=== PATIENT | female | born 1955 | race African-American/Black ===

== ENCOUNTER → 2017-01-25 | Outpatient (CLI) | payer OTHER ==
[~2017-01-25] MED LIST: ATIVAN PO; BACLOFEN10 MG PO; BACTRIM DS TABL1 TA1 PO; FLEXERIL10 MG PO; HYDROCODON-ACE1 EAC5 PO; HYDROCODON-ACE1 EAC7 PO; IBUPROFEN800 MG PO; KEFLEX500 MG PO; LISINOPRIL-HCTZ1 T15 PO; LORTAB 5/500 TA1 TA1 PO; NAPROXEN375 MG PO; NEURONTIN100 MG PO; NORVASC PO; WELLBUTRIN XL150 M1 PO
--- NOTE | ~2017-01-25 | MR17 ---
[facility] A Service of [facility] & [facility] RADIOLOGY TEXT RESULTS PATIENT: OSWALD DE LUNA LOCATION: [facility] : 53 UNIT #: [id number] AGE: [address]: Glenn Knapp MD SEX: F ORDER DR: [id number] [facility] [address] [place], [place] [address] [id number] O MR#: [id number] Acc #: [id number] NAME: OSWALD DE LUNA : 1955 SEX: F STUDY DATE/TIME: 01/25/2017 7:11 UNIT: [facility] ROOM: STUDY DESCRIPTION: MR Brain WWo Contrast Attending Physician: Glenn Knapp M.D. Referring Physician: Glenn Knapp M.D. Ordering Physician: Glenn Knapp M.D. Primary Care Physician: Gold Mckenna M.D. MRI CENTER REPORT This report is preliminary unless electronic signature is present. EXAM MRI of the brain with and without contrast. DATE OF EXAM 01/25/2017 COMPARISON MRI of the brain with and without contrast dated 09/28/2016. HISTORY Lung cancer diagnosed September 19, 2016. Follow up previous MRI brain. TECHNIQUE Multisequence, multiplanar imaging of the brain was obtained with and without contrast. GFR measured greater than 60. 16 mL of MultiHance was administered intravenously. FINDINGS When compared to the previous study from last year, there is improvement in the enhancing mass in the junction of the left temporal and occipital lobes measuring 9 x 10 mm. Subtle nonenhancing increased T2 signal in this region has also decreased in size. No acute stroke, midline shift or hydrocephalus. There are scattered multiple less than 1 cm hyperintense T2 signal lesions noted in the subcortical white matter, periventricular white matter, antony and left cerebellar hemisphere. Some of these lesions are confluent in biparietal periventricular region. Subtle increased T2 signal in the region of bilateral thalami, particularly in the left cannot be excluded. Post contrast sequences do not demonstrate any enhancing mass with edematous change. Thick slices through the sella with the pituitary gland demonstrates a partially empty sella. Pineal region is unremarkable. Mild degenerative changes are in the cervical spine. [facility] A Service of [facility] & [facility] RADIOLOGY TEXT RESULTS PATIENT: OSWALD DE LUNA LOCATION: [facility] : 53 UNIT #: [id number] AGE: [address]: Glenn Knapp MD SEX: F ORDER DR: IMPRESSION 1. There is an enhancing 1 cm lesion noted in the junction of the left posterior temporal lobe and the adjacent left occipital lobe which in a setting of malignancy is most suggestive of metastases. That lesion has significantly improved in the current study. Subtle nonenhancing increased T2 signal in this region has also decreased in size. It is suggestive of improving metastasis. No interval new enhancing lesions are identified. 2. Nonenhancing multiple hyperintense T2 signal lesions are noted in the brain, predominately involving the white matter, likely related to mild chronic microvascular ischemic change or migraine based on age and statistics. Dictated by... Peng Vargas M.D. THIS IS AN ELECTRONICALLY VERIFIED REPORT Peng Vargas M.D. at 01/27/2017 1:14 PM CPR/cam TD: 01/25/2017 20:37 JOB #: [id number] MRI CENTER REPORT COPY
[2017-01-25 07:06] LABS: POC - CREATININE 0.69 mg/dL (0.44-1.03); POC - GFR >60.0 mL/min (>60)
== END | disposition home or self-care (01) ==
LOC: CMRI 06:30
PROVIDERS: Internal Medicine Hematology & Oncology
DX: C34.12 Malignant neoplasm of upper lobe, left bronchus or lung (principal); C79.31 Secondary malignant neoplasm of brain; C79.51 Secondary malignant neoplasm of bone; L40.0 Psoriasis vulgaris
CPT/HCPCS: 70553; 82565; A9577

== ENCOUNTER → 2017-02-02 | Outpatient (CLI) | payer OTHER ==
--- NOTE | ~2017-02-02 | MR17 ---
[facility] A Service of [facility] & [facility] RADIOLOGY TEXT RESULTS PATIENT: OSWALD DE LUNA LOCATION: [facility] : 53 UNIT #: [id number] AGE: [address]: Adams Gannon MD SEX: F ORDER DR: [id number] [facility] [address] [place], [place] [address] [id number] O MR#: [id number] Acc #: [id number] NAME: OSWALD DE LUNA : 1955 SEX: F STUDY DATE/TIME: 02/02/2017 7:06 UNIT: [facility] ROOM: STUDY DESCRIPTION: MR Brain WWo Contrast Attending Physician: Adams Gannon M.D. Referring Physician: Adams Gannon M.D. Ordering Physician: Adams Gannon M.D. Primary Care Physician: Gold Mckenna M.D. MRI CENTER REPORT This report is preliminary unless electronic signature is present. EXAM MRI of the brain with and without contrast dated 02/02/2017. COMPARISON MRI brain with and without contrast dated 01/25/2017. HISTORY Lung cancer diagnosed in September 19, 2016. Metastatic workup. TECHNIQUE Multisequence multiplanar imaging of the brain was obtained with and without contrast. GFR measured greater than 60. 16 mL of MultiHance was administered intravenously. FINDINGS Previously noted lesion along the inferior and posterior aspect of the left lateral temporal lobe close to the left occipital lobe does not demonstrate any enhancement and it measures about 4 mm. Stable when compared to the previous study from a week ago. Previously noted multiple hyperintense T2 nonenhancing lesions in the periventricular white matter, subcortical white matter and antony are relatively stable. No acute stroke, hydrocephalus, hemorrhage or midline shift. There is no new enhancing intracranial mass. Empty sella is again seen. Visualized pineal region is unremarkable. Mild degenerative changes are in the cervical spine. IMPRESSION 1. No significant interval change. 2. Previously noted small 4 mm restricted diffusion lesion of the posterior and lateral left temporal lobe close to the left occipital lobe is stable. The metastatic focus had improved when compared to the previous study. 3. No interval new mass, hydrocephalus or midline shift. 4. Empty sella. Benign. STS. [facility] A Service of [facility] & [facility] RADIOLOGY TEXT RESULTS PATIENT: OSWALD DE LUNA LOCATION: [facility] : 53 UNIT #: [id number] AGE: [address]: Adams Gannon MD SEX: F ORDER DR: 5. Scattered multiple hyperintense T2 nonspecific nonenhancing lesions are likely related to chronic microvascular ischemic change or migraine based on age and statistics. These are focal areas of gliosis from old insult. Dictated by... Peng Vargas M.D. THIS IS AN ELECTRONICALLY VERIFIED REPORT Peng Vargas M.D. at 02/03/2017 3:06 PM JOSEPH/festus TD: 02/02/2017 17:53 JOB #: [id number] MRI CENTER REPORT COPY
== END | disposition home or self-care (01) ==
LOC: CMRI 06:44
DX: C79.31 Secondary malignant neoplasm of brain (principal); C34.90 Malignant neoplasm of unspecified part of unspecified bronchus or lung
CPT/HCPCS: 70553; A9577

== ENCOUNTER → 2017-03-28 | Outpatient (CLI) | payer OTHER ==
--- NOTE | ~2017-03-28 | CT55 ---
[facility] A Service of [facility] & [facility] RADIOLOGY TEXT RESULTS PATIENT: OSWALD DE LUNA LOCATION: [facility] : 53 UNIT #: [id number] AGE: [address]: Glenn Knapp MD SEX: F ORDER DR: [id number] [facility] [address] [place], [place] [address] [id number] O MR#: [id number] Acc #: [id number] NAME: OSWALD DE LUNA : 1955 SEX: F STUDY DATE/TIME: 03/28/2017 13:07 UNIT: [facility] ROOM: STUDY DESCRIPTION: CT Chest W Con Attending Physician: Glenn Knapp M.D. Referring Physician: Glenn Knapp M.D. Ordering Physician: Glenn Knapp M.D. Primary Care Physician: Gold Mckenna M.D. MEDICAL IMAGING REPORT This report is preliminary unless electronic signature is present EXAM CT of the chest with contrast INDICATIONS Lung cancer. This exam is requested for surveillance for metastatic disease. Patient was diagnosed with left upper lobe lung cancer in September 2016. Patient has been treated with chemotherapy. TECHNIQUE Axial CT images were obtained from the dome of the diaphragm through the symphysis pubis following administration of intravenous contrast material. This CT exam was performed with one or more of the following radiation dose reduction techniques: Automatic exposure control, adjustment of mA and/or kV according to patient size, and iterative reconstruction. FINDINGS Patient does have some evidence of response to therapy. Previously identified left upper lobe mass has diminished in size, now measuring 2.3 x 1.4 cm previously 3.7 x 1.4 cm. An AP window node has also diminished in size, now measuring 1.2 x 1.1 cm previously 2.0 x 1.4 cm. A subcarinal lymph node does however, measure slightly larger at 1.1 cm, previously 9 mm; significance is uncertain and may simply reflect a benign reactive node, but short-term follow up is suggested. There are scattered noncalcified pulmonary nodules ranging in size from about 4-5 mm; these are all unchanged when compared to the prior study. No new pulmonary nodules or masses are seen. No aggressive osseous abnormalities are identified. Patient's CT of the abdomen will be dictated separately. Thyroid gland is mildly heterogeneous, which may reflect the presence of some underlying nodules. Patient does have a right internal jugular vein MediPort which extends into the superior vena cava. In addition, there is a small hiatal hernia. [facility] A Service of [facility] RADIOLOGY TEXT RESULTS PATIENT: OSWALD DE LUNA LOCATION: [facility] : 53 UNIT #: [id number] AGE: [address]: Glenn Knapp MD SEX: F ORDER DR: IMPRESSION Patient does have some evidence of response to therapy with decrease in the size of the patient's known primary tumor within the left upper lobe as well as decrease in the size of an AP window node. There has however, been slight interval increase in a subcarinal lymph node. Clinical significance is uncertain. Certainly, attention to the node on subsequent followup studies is recommended. No new pulmonary nodules or masses are identified. Dictated by... Gale Garcia M.D. THIS IS AN ELECTRONICALLY VERIFIED REPORT Gale Garcia M.D. at 03/29/2017 4:58 PM AFF/psc TD: 03/28/2017 17:50 JOB #: [id number] MEDICAL IMAGING REPORT Page 1 of 1 COPY
--- NOTE | ~2017-03-28 | CT5 ---
[facility] A Service of [facility] & [facility] RADIOLOGY TEXT RESULTS PATIENT: OSWALD DE LUNA LOCATION: [facility] : 53 UNIT #: [id number] AGE: [address]: Glenn Knapp MD SEX: F ORDER DR: [id number] [facility] [address] [place], [place] [address] [id number] O MR#: [id number] Acc #: [id number] NAME: OSWALD DE LUNA : 1955 SEX: F STUDY DATE/TIME: 03/28/2017 13:07 UNIT: [facility] ROOM: STUDY DESCRIPTION: CT Abdomen W Cont Attending Physician: Glenn Knapp M.D. Referring Physician: Glenn Knapp M.D. Ordering Physician: Glenn Knapp M.D. Primary Care Physician: Gold Mckenna M.D. MEDICAL IMAGING REPORT This report is preliminary unless electronic signature is present EXAM CT abdomen with contrast. INDICATION Restaging lung cancer. Observation for metastatic disease. PROCEDURE Contrast-enhanced CT of the abdomen. 100 mL of Isovue-370. This CT exam was performed with one or more of the following radiation dose reduction techniques: automatic exposure control, adjustment of mA and/or kV according to patient size, and iterative reconstruction. COMPARISON PET /CT from 09/29/2016. FINDINGS Refer to the separately dictated chest CT for thoracic findings. No liver or splenic mass. A rim-calcified cyst in the upper left kidney measures 12 mm. There is a cystic lesion in the right kidney that measures up to 2 cm. It has a thin internal calcified septation. It is stable in size. It does show underlying renal cortical thinning. The adrenal glands and pancreas are unremarkable. There is a small hiatal hernia. The bowel loops are nondilated. Appendix is normal. There is a sclerotic lesion in the right ilium, that measures 2.1 cm. This was previously lucent and hypermetabolic on the PET/CT. It is stable in size. IMPRESSION 1. Presumed metastatic lesion in the right ilium is stable in size and STS. [facility] A Service of [facility] & [facility] RADIOLOGY TEXT RESULTS PATIENT: OSWALD DE LUNA LOCATION: [facility] : 53 UNIT #: [id number] AGE: [address]: Glenn Knapp MD SEX: F ORDER DR: now shows sclerosis which is presumed to represent post-treatment change. 2. No convincing evidence for soft tissue metastatic disease in the abdomen. 3. Rim-calcified cystic lesions in the left and right kidney are detailed above and not significantly changed from the PET/CT. These probably represent a benign finding. Given there is slight complexity, they can be followed to document stability. Alternatively, they potentially could be further characterized with multiphase MRI or CT if desired clinically. Dictated by... Asa Morales M.D. THIS IS AN ELECTRONICALLY VERIFIED REPORT Asa Morales M.D. at 03/31/2017 7:04 AM MARILEE/harmony TD: 03/28/2017 17:15 JOB #: [id number] MEDICAL IMAGING REPORT Page 1 of 1 COPY
[2017-03-28 11:51] LABS: POC - CREATININE 0.53 mg/dL (0.44-1.03); POC - GFR >60.0 mL/min (>60)
== END | disposition home or self-care (01) ==
LOC: CCAT 11:20
PROVIDERS: Internal Medicine Hematology & Oncology
DX: C34.12 Malignant neoplasm of upper lobe, left bronchus or lung (principal); C79.31 Secondary malignant neoplasm of brain; C79.51 Secondary malignant neoplasm of bone; L40.0 Psoriasis vulgaris; R59.0 Localized enlarged lymph nodes; N28.89 Other specified disorders of kidney and ureter
CPT/HCPCS: 71260; 74160; 82565; Q9967

== ENCOUNTER → 2017-04-07 | Outpatient (CLI) | payer OTHER ==
--- NOTE | ~2017-04-07 | HM ---
Unit #: [id number] #: [id number] Patient: OSWALD DE LUNA [id number] [address] [address] [id number] O MR#: [id number] NAME: OSWALD DE LUNA : 1955 SEX: F STUDY DATE/TIME: 04/07/2017 UNIT: CE ROOM: STUDY DESCRIPTION: Attending Physician: Montana Rodriguez M.D. Referring Physician: Montana Rodriguez M.D. Primary Care Physician: Gold Mckenna M.D. CARDIOLOGY REPORT EXAM 24-hour Holter monitor. DATE APPLIED 04/07/2017 DATE SCANNED 04/15/2017 READ BY Chyna Duvall M.D. ORDERED BY Montana Rodriguez M.D. REASON FOR STUDY Hypertension, Tachycardia FINDINGS 1. Basic rhythm is normal sinus rhythm. Total beats 122,904. 2. Next, 1186 isolated PVCs and 24 ventricular couplets noted. 3. Next, 34 isolated PACs noted including four couplets. A nine beat run of supraventricular tachycardia noted. 4. Average heart rate 85 per minute. Heart rate varies at 60 per minute at 4:53 a.m. to 147 per minute at 1:20 p.m. Dictated by... Flor Long/glenn TD: 04/19/2017 16:07 JOB #: [id number] Unit #: [id number] #: [id number] Patient: OSWALD DE LUNA CARDIOLOGY REPORT Page 1 of 1 X Chyna Duvall MD HOLTER MONITOR REPORT
== END | disposition home or self-care (01) ==
LOC: CEKG 13:05
DX: I47.1 Supraventricular tachycardia (principal)
CPT/HCPCS: 93225; 93226; 93306

== ENCOUNTER → 2017-06-02 | Outpatient (CLI) | payer OTHER ==
--- NOTE | ~2017-06-02 | MR17 ---
[facility] A Service of [facility] & [facility] RADIOLOGY TEXT RESULTS PATIENT: OSWALD DE LUNA LOCATION: [facility] : 53 UNIT #: [id number] AGE: [address]: Glenn Knapp MD SEX: F ORDER DR: [id number] [facility] [address] [place], [place] [address] [id number] O MR#: [id number] Acc #: [id number] NAME: OSWALD DE LUNA : 1955 SEX: F STUDY DATE/TIME: 06/02/2017 7:13 UNIT: [facility] ROOM: STUDY DESCRIPTION: MR Brain WWo Contrast Attending Physician: Glenn Knapp M.D. Referring Physician: Glenn Knapp M.D. Ordering Physician: Glenn Knapp M.D. Primary Care Physician: Gold Mckenna M.D. MRI CENTER REPORT This report is preliminary unless electronic signature is present. EXAM MRI of the brain without and with contrast dated 06/02/2017. COMPARISON MRI brain with and without contrast dated 02/02/2017. HISTORY Lung cancer diagnosed in August 2016. On Tuesday05/29/2017, she had an episode of visual change that lasted for a minute. Right frontal headache also. Patient had a history of brain tumor which went away according to her. FINDINGS Multisequence multiplanar imaging of the brain was obtained with and without contrast. GFR measured greater than 60. 17 mL of MultiHance was administered intravenously. Age-appropriate parenchymal volume loss is seen. No acute stroke, space-occupying intracranial mass, mass effect, midline shift or hydrocephalus. Less than 5 mm few small hyperintense T2-signal lesions are noted in the periventricular and subcortical white matter, most prominent in bifrontal lobes. It is also seen in the antony. Stable. Thick slices through the sella with the pituitary gland demonstrates a widened empty sella. Stable. Pineal region and internal auditory canals appear to be unremarkable in these thicker slices. Degenerative changes on the cervical spine. Postcontrast sequences do not demonstrate enhancing lesions. S-shaped nasal septal deviation is noted. Imaged orbits and the ocular structures are unremarkable. Mastoid air cells are well-aerated. IMPRESSION 1. Nonspecific nonenhancing scattered few hyperintense T2-signal lesions are noted in the brain, likely related to mild chronic microvascular ischemic change or migraine based on age and statistics. 2. No enhancing intracranial mass to suggest metastasis. [facility]. [facility] A Service of [facility] & [facility] RADIOLOGY TEXT RESULTS PATIENT: OSWALD DE LUNA [facility]ATION: [facility] : 53 UNIT #: [id number] AGE: [address]: Glenn Knapp MD SEX: F ORDER DR: 3. Redemonstrated is the widened empty sella, benign. Dictated by... Peng Vargas M.D. THIS IS AN ELECTRONICALLY VERIFIED REPORT Peng Vargas M.D. at 06/02/2017 3:07 PM CPR/rnr TD: 06/02/2017 12:45 JOB #: [id number] MRI CENTER REPORT Page 1 of 1 COPY
[2017-06-02 15:11] LABS: POC - CREATININE 0.65 mg/dL (0.44-1.03); POC - GFR >60.0 mL/min (>60)
== END | disposition home or self-care (01) ==
LOC: CMRI 06:28
PROVIDERS: Internal Medicine Hematology & Oncology
DX: C34.12 Malignant neoplasm of upper lobe, left bronchus or lung (principal); C79.31 Secondary malignant neoplasm of brain; C79.51 Secondary malignant neoplasm of bone; L40.0 Psoriasis vulgaris; G93.9 Disorder of brain, unspecified
CPT/HCPCS: 70553; 82565; A9577

== ENCOUNTER 2017-06-17 08:39 | Emergency (ER) | payer OTHER ==
[~2017-06-17] VITALS: Ht 172.7 cm; Wt 83.9 kg
--- NOTE | ~2017-06-17 | MR17 ---
[facility] A Service of [facility] RADIOLOGY TEXT RESULTS PATIENT: OSWALD DE LUNA LOCATION: [facility] : 53 UNIT #: [id number] AGE: [address]: Tani Cobb DO SEX: F ORDER DR: [id number] [facility] [address] [place], [place] [address] [id number] E MR#: [id number] Acc #: [id number] NAME: OSWALD DE LUNA : 1955 SEX: F STUDY DATE/TIME: 06/17/2017 11:49 UNIT: [facility] ROOM: STUDY DESCRIPTION: MR Brain WWo Contrast Attending Physician: Tani Cobb D.O. Ordering Physician: Tani Cobb D.O. Primary Care Physician: Gold Mckenna M.D. MRI CENTER REPORT This report is preliminary unless electronic signature is present. EXAM Brain MRI with and without contrast. COMPARISON 06/02/2017 HISTORY Pressure sensation in the right side of head. Symptoms since 06/09/2017. TECHNIQUE Multiplanar imaging of the brain was performed with and without contrast. 16 mL of MultiHance was used. FINDINGS On diffusion weighted images, there is no evidence of restricted diffusion to suggest a recent infarct. The routine brain images show moderate chronic ischemic changes around the ventricles bilaterally, appearing similar to the previous exam. There is no evidence of mass lesion, hemorrhage, or edema. There are mild chronic ischemic changes in the mid antony, as well, also unchanged. No evidence of mass, hemorrhage or edema. Postcontrast imaging shows no abnormal enhancement. Extraaxial structures are unremarkable. IMPRESSION Moderate chronic ischemic changes around the ventricles with mild chronic ischemic change in the mid antony. No change from the previous examination. No acute findings. STAT * RESULT [facility] A Service of [facility] RADIOLOGY TEXT RESULTS PATIENT: OSWALD DE LUNA LOCATION: [facility] : 53 UNIT #: [id number] AGE: [address]: Tani Cobb DO SEX: F ORDER DR: Dictated by... Don Guzmán M.D. THIS IS AN ELECTRONICALLY VERIFIED REPORT Don Guzmán M.D. at 06/17/2017 2:27 PM MOIRA/ulices TD: 06/17/2017 12:49 JOB #: [id number] MRI CENTER REPORT Page 1 of 1 COPY
--- NOTE | ~2017-06-17 | CR63 ---
[facility] A Service of [facility] & [facility] RADIOLOGY TEXT RESULTS PATIENT: OSWALD DE LUNA LOCATION: [facility] : 53 UNIT #: [id number] AGE: [address]: Tani Cobb DO SEX: F ORDER DR: [id number] [facility] [address] [place], [place] [address] [id number] E MR#: [id number] Acc #: [id number] NAME: OSWALD DE LUNA : 1955 SEX: F STUDY DATE/TIME: 06/17/2017 12:34 UNIT: [facility] ROOM: STUDY DESCRIPTION: CR Chest 2 View Attending Physician: Tani Cobb D.O. Ordering Physician: Tani Cobb D.O. Primary Care Physician: Gold Mckenna M.D. MEDICAL IMAGING REPORT This report is preliminary unless electronic signature is present EXAM Chest x-ray. HISTORY Pressure sensation right side of face and jaw with mild congestion for the past week. TECHNIQUE Two views of the chest were obtained and compared with 10/01/2016. FINDINGS A port is in satisfactory position on the right. Heart size is normal. The aorta is tortuous. Both lungs are clear with normal vascular markings. No pleural fluid is seen. IMPRESSION Tortuous aorta. No active disease. Dictated by... Don Guzmán M.D. THIS IS AN ELECTRONICALLY VERIFIED REPORT Don Guzmán M.D. at 06/20/2017 11:44 AM MOIRA/cam TD: 06/17/2017 18:30 JOB #: [id number] MEDICAL IMAGING REPORT Page 1 of 1 COPY
[2017-06-17 10:07] LABS: BASOPHIL# 0.1 X10e3 (0-0.3); BASOPHIL% 0.8 % (0-2.5); EOSINOPHIL# 0.1 X10e3 (0-0.7); EOSINOPHIL% 1.2 % (0.0-7.0); HEMATOCRIT 41.7 % (35.0-45.0); HEMOGLOBIN 13.8 gm/dL (12.0-16.0); LYMPHOCYTE# 0.8 X10e3 (1.0-3.5); LYMPHOCYTE% 8.8 % (17.0-45.0); MEAN CELL VOLUME 89.7 FL (83-96); MEAN CORPUSCULAR HEMOGLOBIN 29.8 PG (28-34); MEAN CORPUSCULAR HGB CONC 33.2 g/dL (30-36); MEAN PLATELET VOLUME 6.7 FL (6.5-11.5); MONOCYTE# 0.9 X10e3 (0-1.0); MONOCYTE% 10.3 % (3.0-12.0); NEUTROPHIL# 6.8 X10e3 (1.5-7.1); NEUTROPHIL% 78.9 % (40-75); PLATELET COUNT 288 X10e3 (140-420); RED BLOOD COUNT 4.65 X10e (3.90-5.30); RED CELL DISTRIBUTION WIDTH 13.7 % (11.0-15.5); WHITE BLOOD COUNT 8.7 X10e3 (4.0-10.5)
[2017-06-17 10:12] LABS: DIFF IND NO
[2017-06-17 10:19] LABS: INR 0.9; PARTIAL THROMBOPLASTIN TIME 25.8 SECONDS (23.5-31.3); PROTHROMBIN TIME (PATIENT) 10.3 SECONDS (10.0-11.7)
[2017-06-17 10:58] LABS: ALBUMIN SERUM 4.1 g/dL (3.5-5.0); BILIRUBIN,TOTAL 0.8 mg/dL (0.2-2.0); BUN/CREATININE RATIO 14.28; CALCIUM SERUM 9.6 mg/dL (8.4-10.2); CREATININE SERUM 0.7 mg/dL (0.6-1.4); GLOM FILT RATE Estimated 106.1 mL/min (>60); POTASSIUM 3.6 mmol/L (3.5-5.1)
[2017-06-17 11:25] LABS: POC - CKMB 1.7 ng/mL (0.0-7.9); POC - TROPONIN <0.05 ng/mL (<=0.05)
[2017-06-17 11:47] LABS: POC - CKMB 1.5 ng/mL (0.0-7.9); POC - TROPONIN <0.05 ng/mL (<=0.05)
== END 2017-06-17 14:45 | disposition home or self-care (01) ==
LOC: CED 08:39
PROVIDERS: Emergency Medicine
DX: J01.90 Acute sinusitis, unspecified (principal); I10 Essential (primary) hypertension; F17.200 Nicotine dependence, unspecified, uncomplicated; Z88.8 Allergy status to other drugs, medicaments and biological substances; Z79.899 Other long term (current) drug therapy; Z98.51 Tubal ligation status
CPT/HCPCS: 36415; 70553; 71020; 80053; 82553; 83880; 84484; 85025; 85610; 85730; 96374; 96375; 99285; A9577; J2270; J2405

== ENCOUNTER → 2017-06-27 | Outpatient (CLI) | payer OTHER | END | disposition home or self-care (01) | LOC: CSSDAY 08:46 | DX: Z51.11 Encounter for antineoplastic chemotherapy (principal); C34.12 Malignant neoplasm of upper lobe, left bronchus or lung | CPT/HCPCS: 96372; 96413; J0897; J1642; J9271 ==

== ENCOUNTER → 2017-07-05 | Outpatient (CLI) | payer OTHER ==
--- NOTE | ~2017-07-05 | MY29 ---
[facility] A Service of [facility] RADIOLOGY TEXT RESULTS PATIENT: OSWALD DE LUNA LOCATION: [facility] : 53 UNIT #: [id number] AGE: [address]: Glenn Knapp MD SEX: F ORDER DR: [id number] [facility] [address] [place], [place] [address] [id number] O MR#: [id number] Acc #: [id number] NAME: OSWALD DE LUNA : 1955 SEX: F STUDY DATE/TIME: 07/05/2017 10:47 UNIT: [facility] ROOM: STUDY DESCRIPTION: MY YASH SCREENING W/ CAD BILAT Attending Physician: Glenn Knapp M.D. Referring Physician: Glenn Knapp M.D. Ordering Physician: Glenn Knapp M.D. Primary Care Physician: Gold Mckenna M.D. MEDICAL IMAGING REPORT This report is preliminary unless electronic signature is present EXAM Digital screening mammogram, 07/05/2017, [facility]. HISTORY 62-year-old woman; no risk elevation. Annual screening. COMPARISON Prior mammogram, 09/07/2016, [facility]. FINDINGS Digital imaging of each breast was completed. utilizing screening protocol. Review includes FDA-approved CAD device. Breast parenchyma is predominantly fatty replaced. Subareolar duct prominence in each breast is stable. I see no interval occurring mass. There are no suspicious microcalcifications and no suspicious architectural deformity. IMPRESSION Negative mammogram. Annual screening recommended. Patients over the age of 40 are entered into a reminder system with target due date for the next mammogram. A result letter will also be sent to the patient. BIRADS: 1 Negative Dictated by... Wil Auguste M.D. THIS IS AN ELECTRONICALLY VERIFIED REPORT Wil Auguste M.D. at 07/07/2017 8:02 AM [facility] A Service of [facility] RADIOLOGY TEXT RESULTS PATIENT: OSWALD DE LUNA LOCATION: [facility] : 53 UNIT #: [id number] AGE: [address]: Glenn Knapp MD SEX: F ORDER DR: Ailyn TD: 07/06/2017 17:38 JOB #: [id number] MEDICAL IMAGING REPORT Page 1 of 1 COPY
== END | disposition home or self-care (01) ==
LOC: CWCC 10:19
DX: Z12.31 Encounter for screening mammogram for malignant neoplasm of breast (principal)
CPT/HCPCS: G0202